=== PATIENT | male | born 1960 | race Caucasian/White ===

== ENCOUNTER → 2016-05-30 | Outpatient (REF) ==
[2016-05-31 23:23] LABS: HEPATITIS B SURFACE AB-QL Positive (())
== END ==
LOC: COL.EMP 15:53
DX: Z57.8 Occupational exposure to other risk factors (principal)

== ENCOUNTER → 2017-01-03 | Outpatient (REF) | LOC: WSOH 11:01 | DX: Z02.89 Encounter for other administrative examinations (principal) ==

== ENCOUNTER 2017-03-08 12:28 | Outpatient (RCR) | payer OTHER | END 2017-03-13 14:57 | disposition still patient (30) | LOC: WSOH 12:28 | DX: S01.01XA Laceration without foreign body of scalp, initial encounter (principal); W22.8XXA Striking against or struck by other objects, initial encounter; Y92.238 Other place in hospital as the place of occurrence of the external cause; Y99.0 Civilian activity done for income or pay ==

== ENCOUNTER 2018-02-16 22:37 | Emergency (ER) | payer BC ==
[~2018-02-16] VITALS: Ht 190.5 cm; Wt 130.5 kg
[2018-02-16 22:42] VITALS: BP 157/87; TEMP 96.5
[2018-02-16 23:09] LABS: BASO % 0.3 % (0.0-2.0); EOS # 0.2 (0.0-0.7); EOS % 1.7 % (0-4.0); GRAN # 8.9 (1.4-6.5); GRAN % 72.4 % (42.2-75.2); HEMATOCRIT 42.7 % (42.0-52.0); HEMOGLOBIN 15.1 g/dl (13.5-18.0); LYMPH # 1.8 (1.2-3.4); LYMPH % 14.8 % (20.0-51.0); MEAN CELL VOLUME 91 fl (80.0-100.0); MEAN CORPUSCULAR HEMOGLOBIN 32 pg (27.0-31.0); MEAN CORPUSCULAR HGB CONC 35 g/dl (33.0-37.0); MONO # 1.2 (0.1-0.6); MONO % 10.1 % (1.7-9.3); PLATELET COUNT 250 K/mm3 (130-400); REDCELL DISTRIBUTION WIDTH-CV 12.9 % (11.5-14.5)
[2018-02-16 23:21] LABS: ALANINE AMINOTRANSFERASE 58 U/L (21-72); ALBUMIN 4.3 gm/dL (3.5-5.0); ALKALINE PHOSPHATASE 54 U/L (50-136); ANION GAP 7 mmol/L (7-16); AST,SGOT 34 U/L (15-37); BILIRUBIN,TOTAL 0.7 mg/dL (0.0-1.0); BLOOD UREA NITROGEN 19 mg/dL (9-20); CARBON DIOXIDE 27 mmol/L (22-30); CHLORIDE 106 mmol/L (98-107); CREATININE, serum 0.82 mg/dL (0.66-1.25); GLUCOSE 100 mg/dL (74-106); POTASSIUM 4.3 mmol/L (3.4-5.0); SODIUM 139 mmol/L (137-145); TOTAL PROTEIN 7.6 gm/dL (6.4-8.2)
[2018-02-16 23:36] LABS: TROPONIN-I < 0.012 ng/mL (0.000-0.034)
[2018-02-16] MEDS ORDERED: UROCIT-K 5540 MG/TAB PO (23:40)
[2018-02-17] MEDS ORDERED: NORCO 325 MG-51 TAB PO (00:04)
[2018-02-17 00:42] VITALS: PULSE 79
== END 2018-02-17 00:48 | disposition home or self-care (01) ==
LOC: COL.ER 22:37
PROVIDERS: Nurse Practitioner
DX: M25.512 Pain in left shoulder (principal); Z87.442 Personal history of urinary calculi
CPT/HCPCS: J1170

== ENCOUNTER 2018-02-19 19:09 | Emergency (ER) | payer OTHER ==
[~2018-02-19] VITALS: Ht 190.5 cm; Wt 127.3 kg
[~2018-02-19 19:09] MED LIST: NORCO 325 MG-51 TAB PO; UROCIT-K 5540 MG/TAB PO
[2018-02-19 19:13] VITALS: TEMP 97.7
[2018-02-19 20:22] LABS: COLLECTION METHOD CLEAN CATCH
[2018-02-19 20:28] LABS: BASO # 0.1 (0.0-0.2); BASO % 0.6 % (0.0-2.0); EOS # 0.3 (0.0-0.7); EOS % 3.5 % (0-4.0); GRAN # 5.5 (1.4-6.5); GRAN % 65.1 % (42.2-75.2); HEMOGLOBIN 15.1 g/dl (13.5-18.0); LYMPH # 1.9 (1.2-3.4); LYMPH % 22.4 % (20.0-51.0); MEAN CELL VOLUME 91 fl (80.0-100.0); MEAN CORPUSCULAR HEMOGLOBIN 32 pg (27.0-31.0); MEAN CORPUSCULAR HGB CONC 35 g/dl (33.0-37.0); MEAN PLATELET VOLUME 10.1 fl (7.4-10.4); MONO # 0.7 (0.1-0.6); PLATELET COUNT 260 K/mm3 (130-400); RED BLOOD COUNT 4.74 M/mm3 (4.20-5.60); REDCELL DISTRIBUTION WIDTH-CV 12.8 % (11.5-14.5)
[2018-02-19 20:34] LABS: MUCOUS Present /lpf; PH 5 (5-8); SQUAMOUS EPITHELIAL 0-2 /hpf; URINE APPEARANCE Clear; URINE BACTERIA None Seen /hpf; URINE BILIRUBIN Negative (NEGATIVE); URINE BLOOD Negative (NEGATIVE); URINE CALCIUM OXALATE CRYSTAL Present /hpf; URINE COLOR Yellow; URINE GLUCOSE Negative (NEGATIVE); URINE KETONE Negative (NEGATIVE); URINE LEUKOCYTE ESTERASE Negative (NEGATIVE); URINE NITRATE Negative (NEGATIVE); URINE PROTEIN(semi-quant) Negative (NEGATIVE); URINE RBC 0-2 /hpf; URINE UROBILINOGEN Negative (NEGATIVE)
[2018-02-19 20:42] LABS: ALBUMIN 4.3 gm/dL (3.5-5.0); BILIRUBIN,TOTAL 0.5 mg/dL (0.0-1.0); C-REACTIVE PROTEIN 1.4 mg/dL (0.0-0.9); CALCIUM 9.9 mg/dL (8.4-10.2); CREATININE, serum 0.97 mg/dL (0.66-1.25); TOTAL PROTEIN 7.6 gm/dL (6.4-8.2)
[2018-02-19] MEDS ORDERED: FLEXERIL 1010 MG/TAB PO (21:30)
[2018-02-19] MEDS ORDERED: PERCOCET 325 MG1 TA2 PO (21:30)
[2018-02-19 21:52] VITALS: BP 141/87; PULSE 79
== END 2018-02-19 21:52 | disposition home or self-care (01) ==
LOC: COL.ER 19:09
PROVIDERS: Emergency Medicine
DX: R10.9 Unspecified abdominal pain (principal); M54.5 Low back pain; Z87.442 Personal history of urinary calculi
CPT/HCPCS: J1170; J1885; J2405; J7030; Q9967

== ENCOUNTER → 2018-03-23 | Outpatient (CLI) | payer OTHER ==
[~2018-03-23] MED LIST changes: +FLEXERIL 1010 MG/TAB PO; +PERCOCET 325 MG1 TA2 PO
== END ==
LOC: COL.LAB 10:25
DX: R73.9 Hyperglycemia, unspecified (principal)